=== PATIENT | female | born 1960 | race American Indian/Alaskan Native ===

== ENCOUNTER 2016-11-27 15:12 | Emergency (ER) | payer MEDICAID ==
[2012-09-09 08:04] VITALS: BMI 20.6
[2016-11-27 16:07] LABS: APPEARANCE CLOUDY (CLEAR); BILIRUBIN NEGATIVE (NEGATIVE); COLOR YELLOW (YELLOW); GLUCOSE NEGATIVE (NEGATIVE); KETONE NEGATIVE (NEGATIVE); LEUKOCYTE ESTERASE 2+ (NEGATIVE); NITRITE NEGATIVE (NEGATIVE); PROTEIN NEGATIVE (NEGATIVE); UROBILINOGEN NORMAL (NORMAL)
[2016-11-27 16:11] LABS: BACTERIA MODERATE /hpf (NONE SEEN); MUCUS <1+ /lpf (NONE SEEN); WHITE CELLS - URINE >50 /hpf (0-5)
== END 2016-11-27 18:55 | disposition left against medical advice (07) ==
LOC: D.ER 15:12
PROVIDERS: Emergency Medicine
DX: J01.90 Acute sinusitis, unspecified (principal); N72 Inflammatory disease of cervix uteri; Z20.2 Contact with and (suspected) exposure to infections with a predominantly sexual mode of transmission; F17.200 Nicotine dependence, unspecified, uncomplicated

== ENCOUNTER 2016-12-06 12:57 | Emergency (ER) | payer MEDICAID ==
[2012-09-09 08:04] VITALS: BMI 20.6
== END 2016-12-06 18:15 | disposition home or self-care (01) ==
LOC: D.ER 12:57
DX: A59.01 Trichomonal vulvovaginitis (principal); F17.200 Nicotine dependence, unspecified, uncomplicated

== ENCOUNTER 2017-02-07 19:11 | Emergency (ER) | payer MEDICAID ==
[2012-09-09 08:04] VITALS: BMI 20.6
== END 2017-02-07 21:29 | disposition home or self-care (01) ==
LOC: D.ER 19:11
DX: M25.531 Pain in right wrist (principal); S69.91XA Unspecified injury of right wrist, hand and finger(s), initial encounter; W19.XXXA Unspecified fall, initial encounter

== ENCOUNTER 2017-06-07 13:02 | Emergency (ER) | payer SELFPAY ==
[2012-09-09 08:04] VITALS: BMI 20.6
[2017-06-07 14:55] LABS: APPEARANCE CLOUDY (CLEAR); BILIRUBIN NEGATIVE (NEGATIVE); COLOR YELLOW (YELLOW); GLUCOSE NEGATIVE (NEGATIVE); KETONE NEGATIVE (NEGATIVE); NITRITE NEGATIVE (NEGATIVE); PROTEIN TRACE mg/dL (NEGATIVE); UROBILINOGEN NORMAL (NORMAL)
[2017-06-07 14:57] LABS: BACTERIA FEW /hpf (NONE SEEN); CALCIUM OXALATE CRYSTALS OCC /hpf (NONE SEEN); EPITHELIAL CELLS 0-5 /hpf (0-5); RED CELLS - URINE 0-5 /hpf (0-5); WHITE CELLS - URINE >50 /hpf (0-5)
== END 2017-06-07 16:12 | disposition home or self-care (01) ==
LOC: D.ER 13:02
PROVIDERS: Emergency Medicine
DX: N39.0 Urinary tract infection, site not specified (principal); N76.0 Acute vaginitis; B96.89 Other specified bacterial agents as the cause of diseases classified elsewhere; F17.200 Nicotine dependence, unspecified, uncomplicated

== ENCOUNTER 2018-03-13 16:33 | Emergency (ER) | payer MEDICAID ==
[~2018-03-13] VITALS: Ht 162.6 cm; Wt 54.5 kg
[2018-03-13 16:50] VITALS: BP 142/74; Ht 162.6 cm; Wt 54.5 kg
== END 2018-03-13 19:05 | disposition left against medical advice (07) ==
LOC: D.ER 16:33
DX: Z02.9 Encounter for administrative examinations, unspecified (principal)

== ENCOUNTER 2019-02-12 10:09 | Emergency (ER) | payer MEDICAID ==
[2019-02-12 10:11] VITALS: BMI 18.9
[2019-02-12 11:13] LABS: APPEARANCE SL CLDY (CLEAR); COLOR YELLOW (YELLOW); NITRITE NEGATIVE (NEGATIVE); PROTEIN TRACE mg/dL (NEGATIVE); SPECIFIC GRAVITY 1.015 (1.005-1.020)
[2019-02-12 11:14] LABS: BACTERIA MODERATE /hpf (NONE SEEN); BILIRUBIN NEGATIVE (NEGATIVE); EPITHELIAL CELLS OCC /hpf (0-5); GLUCOSE NEGATIVE (NEGATIVE); KETONE NEGATIVE (NEGATIVE); MUCUS <1+ /lpf (NONE SEEN); RED CELLS - URINE 0-5 /hpf (0-5)
[2019-02-12] MEDS ORDERED: MACROBID100 MG PO (11:29)
[2019-02-12] MEDS ORDERED: TORADOL10 MG PO (11:29)
[2019-02-12 12:49] VITALS: BP 120/74
[2019-02-15 22:07] LABS: CHLAMYDIA TRACHOMATIS, NAA Negative (Negative)
== END 2019-02-12 12:50 | disposition home or self-care (01) ==
LOC: D.ER 10:09
PROVIDERS: Family Medicine
DX: A59.9 Trichomoniasis, unspecified (principal); T14.8XXA Other injury of unspecified body region, initial encounter; R07.81 Pleurodynia

== ENCOUNTER 2019-02-14 10:51 | Emergency (ER) | payer MEDICAID ==
[~2019-02-14] VITALS: Ht 162.6 cm; Wt 50.0 kg
[~2019-02-14 10:51] MED LIST: MACROBID100 MG PO; TORADOL10 MG PO
[2019-02-14 11:06] VITALS: Ht 162.6 cm; Wt 50.0 kg
[2019-02-14 11:32] LABS: BASOPHILS 0.4 % (0-2); EOSINOPHILS 3.6 % (0-7); HEMATOCRIT 42.6 % (36.0-48.0); HEMOGLOBIN 13.8 g/dL (12-16); IMMATURE GRANULOCYTES 0.3 % (0-5); LYMPHOCYTES 21.8 % (15-50); MCH 29.8 pg (26.0-34.0); MCHC 32.4 g/dL (31.0-37.0); MEAN PLATELET VOLUME 9.9 fL (7.4-10.4); MONOCYTES 5.7 % (2-11); NEUTROPHILS 68.2 % (40-80); PLATELET COUNT 274 10x3/uL (130-400); RBC 4.63 10x6/uL (4.00-5.40); WBC 9.3 10x3/uL (4.8-10.8)
[2019-02-14 11:45] LABS: ALBUMIN 3.5 g/dL (3.4-5.0); ALKALINE PHOSPHATASE 77 U/L (46-116); ALT (SGPT) 41 U/L (10-68); AMYLASE - SERUM 36 U/L (25-115); BILIRUBIN - TOTAL 0.31 mg/dL (0.2-1.3); CALC OSMOLALITY 281 mosm/kg (275-300); CALCIUM 8.7 mg/dL (8.5-10.1); CARBON DIOXIDE 31.7 mmol/L (21.0-32.0); CHLORIDE - SERUM 104 mmol/L (98-107); CREATININE - SERUM 0.8 mg/dL (0.6-1.3); GLUCOSE 93 mg/dL (74-106); LIPASE 89 U/L (73-393); POTASSIUM - SERUM 4.6 mmol/L (3.5-5.1); PROTEIN - SERUM 7.1 g/dL (6.4-8.2); SODIUM 140 mmol/L (136-145); UREA NITROGEN 22 mg/dL (7-18); eGFR NON AFRICAN AMERICAN 78 mL/min (90-120)
[2019-02-14 12:24] LABS: APPEARANCE HAZY (CLEAR); BILIRUBIN NEGATIVE (NEGATIVE); COLOR YELLOW (YELLOW); GLUCOSE NEGATIVE (NEGATIVE); KETONE NEGATIVE (NEGATIVE); NITRITE NEGATIVE (NEGATIVE); PROTEIN NEGATIVE (NEGATIVE); UROBILINOGEN NORMAL (NORMAL)
[2019-02-14 12:25] LABS: BACTERIA FEW /hpf (NONE SEEN); EPITHELIAL CELLS 0-5 /hpf (0-5); MUCUS <1+ /lpf (NONE SEEN); WHITE CELLS - URINE 0-5 /hpf (0-5)
[2019-02-14 14:30] VITALS: BP 122/55
[2019-02-14] MEDS ORDERED: LOMOTIL 2.5-0.1 EAC1 PO (14:32)
== END 2019-02-14 15:00 | disposition home or self-care (01) ==
LOC: D.ER 10:51
PROVIDERS: Family Medicine
DX: T37.3X5A Adverse effect of other antiprotozoal drugs, initial encounter (principal); Y92.019 Unspecified place in single-family (private) house as the place of occurrence of the external cause; A59.9 Trichomoniasis, unspecified

== ENCOUNTER 2019-12-31 19:12 | Emergency (ER) | payer MEDICAID ==
[~2019-12-31] VITALS: Ht 162.6 cm; Wt 56.8 kg
[~2019-12-31 19:12] MED LIST changes: +LOMOTIL 2.5-0.1 EAC1 PO
[2019-12-31 19:37] VITALS: Ht 162.6 cm; Wt 56.8 kg
[2019-12-31] MEDS ORDERED: HYDROXYZINE HCL10 MG PO (19:39)
[2019-12-31] MEDS ORDERED: KLONOPIN0.5 MG PO (19:39)
[2019-12-31] MEDS ORDERED: TYLENOL W/CODEI1 TAB PO (21:14)
[2019-12-31] MEDS ORDERED: VOLTAREN75 MG PO (21:14)
[2019-12-31 21:45] VITALS: BP 115/71
== END 2019-12-31 21:45 | disposition home or self-care (01) ==
LOC: D.ER 19:12
DX: S82.832A Other fracture of upper and lower end of left fibula, initial encounter for closed fracture (principal); S99.912A Unspecified injury of left ankle, initial encounter; W19.XXXA Unspecified fall, initial encounter; Y93.9 Activity, unspecified; Y92.9 Unspecified place or not applicable

== ENCOUNTER 2020-03-16 05:24 | Day surgery (SDC) | payer MEDICAID ==
[~2020-03-16] VITALS: Ht 157.5 cm; Wt 56.8 kg
[~2020-03-16 05:24] MED LIST changes: +HYDROXYZINE HCL10 MG PO; +KLONOPIN0.5 MG PO; +LITHIUM CARBON150 MG PO; +MOBIC7.5 MG PO; +RISPERDAL1 MG PO; +TYLENOL W/CODEI1 TAB PO; +VOLTAREN75 MG PO
[2020-03-16 05:46] LABS: HEMATOCRIT 47.1 % (36.0-48.0); HEMOGLOBIN 14.9 g/dL (12-16); MCH 28.7 pg (26.0-34.0); MCHC 31.6 g/dL (31.0-37.0); MCV 90.8 fL (80.0-100.0); MEAN PLATELET VOLUME 9.4 fL (7.4-10.4); RBC 5.19 10x6/uL (4.00-5.40); RDW 13.8 % (11.5-14.5); WBC 6.3 10x3/uL (4.8-10.8)
[2020-03-16] MEDS ORDERED: ACETAMINOPHEN500 M1 PO (06:20)
[2020-03-16 06:52] VITALS: BP 106/46; Ht 157.5 cm; Wt 56.8 kg
--- NOTE | 2020-03-17 09:15 | OP ---
PATIENT NAME: ANGELINA MOSER MEDICAL RECORD: [id number] :64 LOCATION:[facility] ADMISSION DATE: SURGEON: RUTH ALVARENGA MD DATE OF OPERATION: 03/16/2020 PREOPERATIVE DIAGNOSIS: Qhma-sp-mjaemsnp of osteoarthritis, bilateral hips. POSTOPERATIVE DIAGNOSIS: Qmun-uk-tphpitgq of osteoarthritis, bilateral hips. PROCEDURE: Bilateral hip injection under fluoroscopy. SURGEON: Ruth Alvarenga MD ANESTHESIA: General. INTRAOPERATIVE COMPLICATIONS: None. SUMMARY OF PATHOLOGIC FINDINGS: Consistent with the preoperative diagnosis, the patient had jrbe-ig-fuexmnsk arthritis seen on fluoroscopy. OPERATIVE SUMMARY IN DETAIL: After obtaining the appropriate preoperative orthopedic surgery consents as well as anesthetic consultation, evaluation and clearance, the patient was brought to the operating room and placed on the fluoroscopic table in supine position. After adequate TIVA anesthesia was administered and appropriate timeout was taken and agreed upon by all. Each groin was prepped and draped in routine sterile fashion. An 18-gauge needle was then placed into the hip capsule under fluoroscopic guidance. A small amount of Isovue was placed to be sure that the needle tip was in the appropriate position, 40 mg of Depo-Medrol and 5 cc of 0.25% Marcaine plain were injected into the patient's hip on the left first. Having completed this, the needle tip was withdrawn. Bandage was applied. Attention was then turned to the right hip under fluoroscopic guidance. Again, an 18-gauge spinal needle was directed directly into the capsule. Small amount of Isovue which yet again utilized to be sure that the tip was in the appropriate position. Having completed this, 40 cc of Depo-Medrol and 5 cc of 0.25% Marcaine plain were injected into the hip. Having completed this, the patient was awakened and taken back to outpatient in stable condition. TRANSINT:[id number] Voice Confirmation ID: [id number] DOCUMENT ID: [id number] COLETTE LUTZ, RUTH GIBBS at 0915 CC: [id number] DICTATION DATE: 03/16/20 0729 ASSOCIATE MERCHANDISER: 03/16/20 1850 DEP [facility] [place]20 [facility] [address] [place] [address]
[2020-03-17] MEDS ORDERED: PERCOCET 5-3251 TAB PO (14:40)
== END 2020-03-16 08:25 | disposition home or self-care (01) ==
LOC: D.OPS 05:24 → D.PAN 08:30
PROVIDERS: Anesthesiology; ATTEND Orthopaedic Surgery
DX: M16.0 Bilateral primary osteoarthritis of hip (principal); M25.552 Pain in left hip; M25.572 Pain in left ankle and joints of left foot; F17.200 Nicotine dependence, unspecified, uncomplicated

== ENCOUNTER 2020-03-17 11:04 | Emergency (ER) | payer MEDICAID ==
[~2020-03-17] VITALS: Ht 157.5 cm; Wt 59.1 kg
[~2020-03-17 11:04] MED LIST changes: +ACETAMINOPHEN500 M1 PO
[2020-03-17 11:07] VITALS: Ht 157.5 cm; Wt 59.1 kg
[2020-03-17 11:47] LABS: HEMATOCRIT 42.1 % (36.0-48.0); HEMOGLOBIN 13.5 g/dL (12-16); LYMPHOCYTES 11.6 % (15-50); MCH 29.1 pg (26.0-34.0); MCHC 32.1 g/dL (31.0-37.0); MCV 90.7 fL (80.0-100.0); MEAN PLATELET VOLUME 9.7 fL (7.4-10.4); NEUTROPHILS 79.6 % (40-80); PLATELET COUNT 252 10x3/uL (130-400); RBC 4.64 10x6/uL (4.00-5.40); RDW 14.2 % (11.5-14.5)
[2020-03-17 11:54] LABS: ANION GAP 10.1 mmol/L (8-16); CALCIUM 9.2 mg/dL (8.5-10.1); CARBON DIOXIDE 29.2 mmol/L (21.0-32.0); CREATININE - SERUM 0.9 mg/dL (0.6-1.3); POTASSIUM - SERUM 4.3 mmol/L (3.5-5.1); WBC 9.9 10x3/uL (4.8-10.8)
[2020-03-17 12:02] LABS: ALBUMIN 3.4 g/dL (3.4-5.0); BILIRUBIN - TOTAL 0.17 mg/dL (0.2-1.3); C-REACTIVE PROTEIN 2.2 mg/dL (0.0-0.9); PROTEIN - SERUM 7.1 g/dL (6.4-8.2)
[2020-03-17 13:31] LABS: ERYTHROCYTE SEDIMENTATION RATE 19 mm/hr (0-30)
[2020-03-17 14:40] VITALS: BP 107/54
[2020-03-17] MEDS ORDERED: PERCOCET 5-3251 TAB PO (14:40)
== END 2020-03-17 14:50 | disposition home or self-care (01) ==
LOC: D.ER 11:04
PROVIDERS: Family Medicine
DX: M25.551 Pain in right hip (principal); J45.909 Unspecified asthma, uncomplicated; Z72.0 Tobacco use